=== PATIENT | female | born 1990 | race Caucasian/White ===

== ENCOUNTER 2017-05-21 14:18 | Emergency (ER) | payer BC ==
[~2017-05-21] VITALS: Ht 160 cm; Wt 68.6 kg
[2017-05-21] MEDS ORDERED: DEBROX15 ML BOTH EARS (16:13)
[2017-05-21 16:55] VITALS: BP 130/80
== END 2017-05-21 16:57 | disposition home or self-care (01) ==
LOC: EME 14:18
DX: H61.23 Impacted cerumen, bilateral (principal)
CPT/HCPCS: 99281; 99284